=== PATIENT | female | born 1975 | race Caucasian/White ===

== ENCOUNTER 2016-05-28 14:35 | Emergency (ER) | payer OTHER ==
[2016-05-28 14:36] VITALS: BMI 22.0
[2016-05-28 14:57] VITALS: BP 148/98; PULSE 106; RESP 18; TEMP 98.7; O2SAT 98
[2016-05-28] MEDS ORDERED: Oxycodone/Acetaminophen 5/325 mg Tab PO STA (16:13)
[2016-05-28] MEDS ORDERED: Oxycodone/Acetaminophen 5/325 mg Tab ONE (16:17)
--- NOTE | 2016-05-28 16:25 | C.PDOC ---
Time Seen by Provider: 05/28/16 15:31 Chief Complaint (Nursing): Back Pain Past Medical History Vital Signs: Last Vital Signs Temp 98.7 F 05/28/16 14:57 Pulse 106 H 05/28/16 14:57 Resp 18 05/28/16 14:57 BP 148/98 H 05/28/16 14:57 Pulse Ox 98 05/28/16 14:57 - Medical History PMH: Back Problems Family History: States: Unknown Family Hx - Social History Hx Tobacco Use: No Hx Alcohol Use: No Hx Substance Use: No - Immunization History Hx Tetanus Toxoid Vaccination: Yes Hx Influenza Vaccination: Yes Hx Pneumococcal Vaccination: Yes ED Course And Treatment O2 Sat by Pulse Oximetry: 98 Pulse Ox Interpretation: Normal Disposition Counseled Patient/Family Regarding: Studies Performed, Diagnosis, Need For Followup, Rx Given - Disposition Referrals: [facility] [Outside] [facility] [Outside] Disposition: HOME/ ROUTINE Disposition Time: 16:14 Condition: STABLE Additional Instructions: LIGHT DUTY TO LOWER BACK AVOID HEAVY LIFTING, BENDING, ETC. TAKE PAIN MEDICATION NEED PRESCRIBED FOLLOW UP WITH PMD AND ORTHO IN 2-3 BOWEN FOR RE-EVALUATION. RETURN TO ED IF ANY WORSENING OR NEW CHANGES. Prescriptions: Ibuprofen [Motrin] 1 tab PO Q6 #20 tab Methocarbamol [Robaxin] 500 mg PO TID #14 tab traMADol [Ultram] 50 mg PO TID #7 tab Instructions: Sciatica (ED), Lumbar Radiculopathy (ED) Forms: Work Excuse - Clinical Impression Clinical Impression: Lumbar radiculopathy
--- NOTE | 2016-05-28 16:27 | C.PDOC ---
History Of Present Illness 41 yr old female with PMHx of sciatica presents to the ER for evaluation of low back pain, radiating to the bilateral thighs, gradually worsening for the past 6 days. Patient states the pain is localized and worse with movement. Patient reports history of similar pain in the past. Patient denies fever, chest pain, SOB, nausea, vomiting, abdominal pain, diarrhea, dysuria, incontinence, saddle anesthesia, wekaness or numbness. Time Seen by Provider: 05/28/16 15:31 Chief Complaint (Nursing): Back Pain History/Exam Limitations: no limitations Onset/Duration Of Symptoms: Gradual (past 6 days) Past Medical History Reviewed: Historical Data, Nursing Documentation, Vital Signs Vital Signs: Last Vital Signs Temp 98.7 F 05/28/16 14:57 Pulse 106 H 05/28/16 14:57 Resp 18 05/28/16 14:57 BP 148/98 H 05/28/16 14:57 Pulse Ox 98 05/28/16 16:32 - Medical History PMH: Back Problems Family History: States: No Known Family Hx - Social History Hx Tobacco Use: No Hx Alcohol Use: No Hx Substance Use: No - Immunization History Hx Tetanus Toxoid Vaccination: Yes Hx Influenza Vaccination: Yes Hx Pneumococcal Vaccination: Yes Review Of Systems Except As Marked, All Systems Reviewed And Found Negative. Constitutional: Negative for: Fever Cardiovascular: Negative for: Chest Pain Respiratory: Negative for: Shortness of Breath Gastrointestinal: Negative for: Nausea, Vomiting, Abdominal Pain, Diarrhea Genitourinary: Negative for: Dysuria, Incontinence Musculoskeletal: Positive for: Back Pain (Low back pain, radiating to the bilateral thighs. ) Neurological: Negative for: Weakness, Numbness Physical Exam - Physical Exam Appears: Well, Non-toxic, No Acute Distress Skin: Warm, Dry, No Rash Head: Atraumatic, Normacephalic Oral Mucosa: Moist Neck: Normal, Normal ROM, Supple Chest: Symmetrical, No Tenderness Cardiovascular: Rhythm Regular, No Murmur Respiratory: Normal Breath Sounds, No Rales, No Rhonchi, No Stridor, No Wheezing Back: No Muscle Spasm, Paraspinal Tenderness (Diffuse paralumbar tenderness) Extremity: Normal ROM, No Swelling Neurological/Psych: Oriented x3, Normal Speech, Normal Motor ED Course And Treatment - Laboratory Results Urine POC: Negative O2 Sat by Pulse Oximetry: 98 Pulse Ox Interpretation: Normal Progress Note: on re-evaluation, pt is afebrile, hemodynamicaly stable. Non- toxic. AmbulatorY in ED with stable gait. Abd: benign. BacK : (-) CVA tenderness. neurologicaly intact. UA results review and c/w UTI. Pt has clinical findings c/w sciatica/lumbar radiculopathy. pt advised and ref. to F/u with PMD in 1-2 days for re-eavl. return if any new changes. Medical Decision Making Medical Decision Making: PLAN: * HCG Urine * Urinalysis * Percocet PO Disposition Counseled Patient/Family Regarding: Studies Performed, Diagnosis, Need For Followup, Rx Given - Disposition Referrals: [facility] [Outside] [facility] [Outside] Disposition: HOME/ ROUTINE Disposition Time: 16:20 Condition: STABLE Additional Instructions: LIGHT DUTY TO LOWER BACK AVOID HEAVY LIFTING, BENDING, ETC. TAKE PAIN MEDICATION NEED PRESCRIBED FOLLOW UP WITH PMD AND ORTHO IN 2-3 BOWEN FOR RE-EVALUATION. RETURN TO ED IF ANY WORSENING OR NEW CHANGES. Prescriptions: Ciprofloxacin [Cipro] 1 tab PO BID #14 tab Ibuprofen [Motrin] 1 tab PO Q6 #20 tab Methocarbamol [Robaxin] 500 mg PO TID #14 tab traMADol [Ultram] 50 mg PO TID #7 tab Instructions: Sciatica (ED), Lumbar Radiculopathy (ED), Urinary Tract Infection in Women (ED) Forms: Work Excuse - Clinical Impression Clinical Impression: Lumbar radiculopathy, UTI (urinary tract infection) - PA / SALON RECEPTIONIST / Resident Statement MD/DO has reviewed & agrees with the documentation as recorded. - Scribe Statement The provider has reviewed the documentation as recorded by the Scribe Nya Cam All medical record entries made by the Jordynibmarty were at my direction and personally dictated by me. I have reviewed the chart and agree that the record accurately reflects my personal performance of the history, physical exam, medical decision making, and the department course for this patient. I have also personally directed, reviewed, and agree with the discharge instructions and disposition.
[2016-05-28 16:39] LABS: RBC URINE 1 /hpf (0-3); URINE BACTERIA RARE (<OCC); URINE BILIRUBIN NEGATIVE (NEGATIVE); URINE BLOOD NEGATIVE (NEGATIVE); URINE COLOR Yellow (YELLOW); URINE GLUCOSE (UA) NORMAL (Normal); URINE KETONE 1+ mg/dL (NEGATIVE); URINE LEUKOCYTE ESTERASE NEG Leu/uL (Negative); URINE PROTEIN NEGATIVE (NEGATIVE); URINE UROBILINOGEN NORMAL mg/dL (0.2-1.0); WBC URINE 13 /hpf (0-5)
== END 2016-05-28 17:08 | disposition home or self-care (01) ==
LOC: C.ER 14:35
DX: M54.16 Radiculopathy, lumbar region (principal); N39.0 Urinary tract infection, site not specified

== ENCOUNTER 2016-07-18 10:15 | Emergency (ER) | payer OTHER ==
[2016-07-18 10:21] VITALS: BMI 21.8
[2016-07-18 10:23] VITALS: BP 141/83; PULSE 125; RESP 16; TEMP 98; O2SAT 100
--- NOTE | 2016-07-18 10:45 | C.PDOC ---
History Of Present Illness 41 year old patient, with a past medical history of back problems, presents to the ED complaining of back pain worsening for the past 10 days. The back pain is radiating to her left buttock and left leg. Patient states today the pain is not tolerable. Patient has been seen here for similar back pain complaints. She is requesting the same shot she received last time to alleviate the pain. Patient notes she has been trying OTC medications with minimal relief. Patient denies chest pain, shortness of breath, nausea, vomiting, numbness, weakness, incontinence, any new falls or injuries. Time Seen by Provider: 07/18/16 10:47 Chief Complaint (Nursing): Back Pain History Per: Patient History/Exam Limitations: no limitations Onset/Duration Of Symptoms: Days (10), Worse Since (today) Current Symptoms Are (Timing): Still Present Quality Of Discomfort: "Pain" Severity: Moderate Pain Scale Rating Of: 5 Previous Symptoms: Back Pain, Chronic Pain Associated Symptoms: None Recent travel outside of the [place]: No Additional History Per: Prior Records Past Medical History Reviewed: Historical Data, Nursing Documentation, Vital Signs Vital Signs: Last Vital Signs Temp 98 F 07/18/16 10:21 Pulse 125 H 07/18/16 10:21 Resp 16 07/18/16 10:21 BP 141/83 07/18/16 10:21 Pulse Ox 100 07/18/16 10:49 - Medical History PMH: Back Problems Family History: States: Unknown Family Hx - Social History Hx Tobacco Use: No Hx Alcohol Use: No Hx Substance Use: No - Immunization History Hx Tetanus Toxoid Vaccination: Yes Hx Influenza Vaccination: Yes Hx Pneumococcal Vaccination: Yes Review Of Systems Except As Marked, All Systems Reviewed And Found Negative. Cardiovascular: Negative for: Chest Pain Respiratory: Negative for: Shortness of Breath Gastrointestinal: Negative for: Nausea, Vomiting Genitourinary: Negative for: Incontinence Musculoskeletal: Positive for: Back Pain (radiating to left buttock and left leg ) Neurological: Negative for: Weakness, Numbness Physical Exam - Physical Exam Appears: Non-toxic, Other (moderate distress) Skin: Warm, Dry Head: Atraumatic, Normacephalic Eye(s): bilateral: Normal Inspection, EOMI Neck: Normal ROM, Supple Chest: Symmetrical Cardiovascular: Rhythm Regular Respiratory: Normal Breath Sounds, No Rales, No Rhonchi, No Wheezing Back: No CVA Tenderness, No Vertebral Tenderness, Decreased ROM (due to pain ), No Paraspinal Tenderness, Other Extremity: No Pedal Edema, No Calf Tenderness, No Deformity, No Swelling, Other (limited ROM to left leg due to pain) Extremity: Bilateral: Atraumatic, Normal Color And Temperature Neurological/Psych: Oriented x3, Normal Motor, Normal Sensation Gait: Steady ED Course And Treatment O2 Sat by Pulse Oximetry: 100 (room air) Pulse Ox Interpretation: Normal Progress - Data Reviewed Data Reviewed: Old records Medical Decision Making Medical Decision Making: Prior records show patient was tachycardic and instructed to follow up with PMD. Disposition Counseled Patient/Family Regarding: Diagnosis, Need For Followup, Rx Given - Disposition Referrals: [facility] [Outside] [facility] [Outside] Disposition: HOME/ ROUTINE Disposition Time: 10:47 Condition: IMPROVED Prescriptions: Cyclobenzaprine [Flexeril] 10 mg PO TID #15 tab traMADol [Ultram] 50 mg PO TID #15 tab Instructions: Sciatica (ED) Forms: Work Excuse - Clinical Impression Clinical Impression: Sciatica - Scribe Statement The provider has reviewed the documentation as recorded by the Scribe Sonya Jaffe Provider Attestation: All medical record entries made by the Scribe were at my direction and personally dictated by me. I have reviewed the chart and agree that the record accurately reflects my personal performance of the history, physical exam, medical decision making, and the department course for this patient. I have also personally directed, reviewed, and agree with the discharge instructions and disposition.
[2016-07-18] MEDS ORDERED: Dexamethasone 4 mg/1 ml ONE (10:58)
== END 2016-07-18 11:07 | disposition home or self-care (01) ==
LOC: C.ER 10:15
DX: M54.42 Lumbago with sciatica, left side (principal)
CPT/HCPCS: 96372; 99283; J1100; J1885

== ENCOUNTER 2016-12-15 11:48 | Emergency (ER) | payer OTHER ==
[2016-12-15 11:48] VITALS: BMI 21.8
[2016-12-15 12:08] VITALS: TEMP 98.6; O2SAT 100
[2016-12-15 12:55] VITALS: BP 130/84; PULSE 108; RESP 18
--- NOTE | 2016-12-15 13:06 | C.PDOC ---
History Of Present Illness The patient is a 41yo female, presents to the ED complaining of left lower back pain, radiating to her left leg. She denies any associated bowel or bladder dysfunction, denies any saddle anesthesia. Of note, patient states she has had similar pain intermittently for the past couple years. She denies any new trauma or injury, also denies numbness, tingling or weakness. She offers no other medical complaints. Time Seen by Provider: 12/15/16 12:40 Chief Complaint (Nursing): Back Pain History Per: Patient History/Exam Limitations: no limitations Onset/Duration Of Symptoms: Days Current Symptoms Are (Timing): Still Present Quality Of Discomfort: "Pain" Previous Symptoms: Back Pain, Chronic Pain Past Medical History Reviewed: Historical Data, Nursing Documentation, Vital Signs Vital Signs: Last Vital Signs Temp 98.6 F 12/15/16 12:54 Pulse 108 H 12/15/16 12:54 Resp 18 12/15/16 12:54 BP 130/84 12/15/16 12:54 Pulse Ox 100 12/15/16 15:17 - Medical History PMH: Back Problems Surgical History: No Surg Hx Family History: States: Unknown Family Hx - Social History Hx Tobacco Use: No Hx Alcohol Use: No Hx Substance Use: No - Immunization History Hx Tetanus Toxoid Vaccination: Yes Hx Influenza Vaccination: No Hx Pneumococcal Vaccination: No Review Of Systems Genitourinary: Negative for: Dysuria, Frequency, Incontinence, Hematuria Musculoskeletal: Positive for: Back Pain, Leg Pain Neurological: Negative for: Weakness, Numbness Physical Exam - Physical Exam Appears: Non-toxic, No Acute Distress Skin: Warm, Dry Head: Atraumatic Eye(s): bilateral: Normal Inspection Neck: Normal ROM Cardiovascular: Rhythm Regular Respiratory: Normal Breath Sounds Back: Normal Inspection, No CVA Tenderness, No Vertebral Tenderness, No Paraspinal Tenderness Extremity: Normal ROM, No Deformity, No Swelling Neurological/Psych: Oriented x3 ED Course And Treatment O2 Sat by Pulse Oximetry: 100 (RA) Pulse Ox Interpretation: Normal Medical Decision Making Medical Decision Making: Impression: 41yo female w/ back pain radiating to left leg Plan: -- Toradol 60 mg IM -- Flexeril 10 mg PO Pt informed to follow up in clinic in 1-2 days. Disposition - Disposition Referrals: [facility] [Outside] [facility] [Outside] Disposition: HOME/ ROUTINE Disposition Time: 12:40 Condition: GOOD Additional Instructions: Thank you for letting us take care of you today. Your provider was Dr. Peterson. You were treated for an back pain. The emergency medical care you received today was directed at your acute symptoms. If you were prescribed any medication, please fill it and take as directed. It may take several days for your symptoms to resolve. Return to the Emergency Department if your symptoms worsen, do not improve, or if you have any other problems. Please contact your doctor or call one of the physicians/clinics you have been referred to that are listed on the Patient Visit Information form that is included in your discharge packet. Bring any paperwork you were given at discharge with you along with any medications you are taking to your follow up visit. Our treatment cannot replace ongoing medical care by a primary care provider (PCP) outside of the emergency department. Thank you for allowing the [facility] team to be part of your care today. Follow up in the clinic in 2-3 days for re-evaluation and further management. Prescriptions: Cyclobenzaprine [Cyclobenzaprine HCl] 10 mg PO Q8 PRN #20 tab PRN Reason: Muscle Spasm Ibuprofen [Motrin] 600 mg PO Q6 PRN #20 tab PRN Reason: Pain, Moderate (4-7) Instructions: Sciatica (ED) Forms: [employer] (Bengali), Work Excuse - Clinical Impression Clinical Impression: Sciatica - Scribe Statement The provider has reviewed the documentation as recorded by the Jordynibe Natalia Gracia All medical record entries made by the Jordynibe were at my direction and personally dictated by me. I have reviewed the chart and agree that the record accurately reflects my personal performance of the history, physical exam, medical decision making, and the department course for this patient. I have also personally directed, reviewed, and agree with the discharge instructions and disposition.
== END 2016-12-15 13:00 | disposition home or self-care (01) ==
LOC: C.ER 11:48
DX: M54.30 Sciatica, unspecified side (principal)
CPT/HCPCS: 96372; 99283; J1885